=== PATIENT | female | born 1950 | race Caucasian/White ===

== ENCOUNTER 2017-01-21 16:59 | Inpatient (IN) | payer MEDICARE ==
[~2017-01-21] VITALS: Ht 170.2 cm; Wt 76.7 kg
--- NOTE | ~2017-01-21 | CN ---
PATIENT NAME:THU RM MEDICAL RECORD: [id number] : 48 LOCATION:D.MS [facility] ADMIT DATE: 01/21/17 ACCOUNT: [id number] CONSULTING PHYSICIAN: JOSSELIN ADKINS MD REFERRING PHYSICIAN: PANCHO GERMAN M.D. DATE OF CONSULTATION: 01/22/2017 CONSULT REQUESTING PHYSICIAN: Carrie Roche MD. REASON FOR CONSULTATION: Acute asthma exacerbation, pneumonia, miliary shadow on the CT scan of the chest. HISTORY OF PRESENT ILLNESS: Ms. Rm is a 66-year-old female, who is sick since November. Initially, she had a flu-like symptom. She was treated with antibiotics, she got better. She started working again, as well as she was swimming. She is also having trip to [facility]. But for the last few days, again, she has a fever, she is coughing, she has shortness of breath and she is not feeling well. Denies any chest pain. She is hearing herself wheezing. Also, the patient states she has mold in her home, which she cleaned a few years ago. Also, she is working as a cleaning lady. REVIEW OF SYSTEMS: Mainly in the history of present illness. CONSTITUTIONAL: She has fever of 100. HEENT: She has some sore throat. RESPIRATORY: As in history of present illness. CARDIOVASCULAR: Negative. GASTROINTESTINAL: Negative. GENITOURINARY: Negative. Other review of systems is negative. PAST MEDICAL HISTORY: 1. Asthma, diagnosed 20 years ago. 2. History of hyperlipidemia. 3. Depression. 4. Anxiety. 5. Psoriasis. 6. Chronic pain. PAST SURGICAL HISTORY: She had 20 bilateral nodules removed. ALLERGIES: There are no known drug allergies. PRESENT MEDICATIONS: On [employer] was reviewed. PERSONAL AND SOCIAL HISTORY: She is employed at [employer]. She is . She is a nonsmoker and nondrinker. FAMILY HISTORY: Noncontributory. PHYSICAL EXAMINATION: GENERAL: Now, the patient is lying comfortably in bed. She is not in acute distress. VITAL SIGNS: The blood pressure is 116/63, pulse is 93, respiration is 18, temperature 98.4, and SPO2 is 95% on room air. HEENT: Conjunctivae are pink. Sclerae nonicteric. CONSULT REPORT [id number] THU RM NECK: Supple. No JVD. CHEST: There is wheeze on forceful expiration. No crackles. HEART: Rhythm regular, normal sound, no murmur. ABDOMEN: Soft. Bowel sounds present. No hepatosplenomegaly. RECTAL: Deferred. EXTREMITIES: No cyanosis, no clubbing and no pedal edema. SKIN: Warm, normal turgor. CENTRAL NERVOUS SYSTEM: The patient is awake and alert. There are no obvious cranial nerve abnormality. The gait was not tested. IMAGING: CT scan of the chest: There is no PE. There are alveolar and interstitial changes bilaterally. There are some miliary nodules. OTHER LABORATORY DATA: CBC: The WBC is 5.1, hemoglobin 12.9, hematocrit 38.4 and the platelet count 206. The neutrophils are 62%. Chemistry: Sodium is 138, potassium is 3.3, chloride 102, bicarb is 28.5 and glucose is 116. IMPRESSION: 1. Bilateral pneumonia. 2. Miliary nodules, rule out tuberculosis, rule out histoplasmosis, rule out endocarditis. The patient has no history of recreational drug abuse. 3. Acute exacerbation of asthma. 4. Febrile illness. 5. Acute cough. RECOMMENDATION: 1. Continue Levaquin. 2. Follow up on the blood culture. 3. Check the cardiac echo. 4. Consult Dr. Perez. I will defer the infectious disease workup to Dr. Perez. 5. Followup labs and chest radiograph in the morning. Dr. Roche, thank you for involving me in the care of Ms. Rm. TRANSINT:[id number] Voice Confirmation ID: [id number] DOCUMENT ID: [id number] JOSSELIN ADKINS MD CC: PANCHO GERMAN M.D. [id number] DICTATION DATE: 01/22/17 1553 ORACLE DATABASE MANAGER: 01/23/17 0225 ADM IN [facility] [address] [place] [address]
--- NOTE | ~2017-01-21 | EC ---
PATIENT:THU RM DATE OF SERVICE: 01/21/17 SEX: F MEDICAL RECORD: [id number] DATE OF : [birth year] LOCATION:D.[facility] AGE OF PATIENT: 66 ADMISSION DATE: 01/21/17 REFERRING PHYSICIAN: INTERPRETING PHYSICIAN: DEENA JALLOH MD ECHOCARDIOGRAM REPORT ECHO CHARGES 4 ECHO COMPLETE CLINICAL DIAGNOSIS: PNEUMONIA/SOB ECHOCARDIOGRAPHIC MEASUREMENTS (adult normal given) AC root (d.<3.7cm) 3.2 LV Septum d (<1.2 cm> 1.2 Valve Excursion 2.0 LV Septum (systole) 1.9 Left Atria (s.<4.0cm> 2.8 LVPW d(<1.2cm) 1.2 RV (d.<2.3cm) 2.9 LVPW (sytole) 1.8 LV diastole(<5.6CM) 4.5 MV E-F(>70mm/sec) LV systole 2.1 LVOT Diameter 2.0 MV exc.(>10mm) Est.ejection fraction (50-75%) Pericardial Effusion N DOPPLER: LVIT A 90.0 E 70.0 LA RVSP 39.0 LVOT 145 AOP1/2T Asc. Ao 135 RVOT 82.0 RA PA 96.0 AV Gradient Peak 7.3 AV Mean 3.7 AV Area 2.6 MV Gradient Peak 4.0 MV Mean 1.6 MV Area COMMENTS: Manager Customs: Noreen PALACIOSOE In Store Demonstrator:1 Dr. Jalloh TAPE# PACS DATE OF SERVICE: 01/24/2017 Echocardiogram FINDINGS: 1. Left ventricular chamber size is within normal limits. Left ventricular systolic function is normal. Overall ejection fraction estimated at 60%. 2. Left atrium, right atrium, and right ventricle chamber sizes are within normal limits. 3. Valvular structures have normal structure and motion. ECHOCARDIOGRAM REPORT [id number] THU RM 4. Doppler interrogation reveals no significant valvular insufficiency or stenosis. 5. No evidence of pericardial effusion or left ventricular thrombus. TRANSINT:[id number] Voice Confirmation ID: [id number] DOCUMENT ID: [id number] DEENA JALLOH MD CC: [id number] DICTATION DATE: 01/24/17 1504 BEND SORTER: 01/24/17 2326 ADM IN [place] [id number]
--- NOTE | ~2017-01-21 | PRO ---
PATIENT:THU RM MEDICAL RECORD: [id number] : 48 LOCATION:D.[facility]0 ADMISSION DATE: 01/21/17 PROCEDURE PERFORMED BY: JOSSELIN ADKINS MD DATE OF PROCEDURE: 01/23/2017 PROCEDURE: Fiberoptic bronchoscopy. INDICATION: Ms. Rm is a 66-year-old female who was admitted with pneumonia. CT scan showed she has miliary nodules. Fiberoptic bronchoscopy was carried out to inspect the airway as well as to obtain specimen for culture and sensitivity. PROCEDURE: After obtaining the conscious sedation, the fiberoptic bronchoscope was passed orally. The vocal cords were normal, moving equally on phonation. The epiglottis was normal. The vallecula was normal. The pyriform sinuses were normal. The main trachea was normal. The adrian was sharp. The right upper lobe, right lower lobe, right middle lobe, subsegment within normal limits. No endobronchial lesion was seen. There was bronchitic change. There was white yellowish secretion on the right. The left main bronchus was normal. The subsegment to the left upper lobe, lingula and left lower lobe within normal range. No endobronchial lesion was seen. There were bronchitic changes seen. There are also white to yellowish secretions on the left side. Specimen washing was obtained, sent for routine culture and sensitivity, AFB and fungus and cytology. Overall, the patient tolerated the procedure. She was coughing violently during the procedure. TRANSINT:[id number] Voice Confirmation ID: [id number] DOCUMENT ID: [id number] JOSSELIN ADKINS MD CC: LEVI BROWNLEE MD [id number] DICTATION DATE: 01/23/17 1604 SECOND GRADE TEACHER: 01/23/172222 ADM IN [facility] [address] [place] [address]
[2017-01-21] MEDS ORDERED: CELEXA20 MG PO (17:44)
[2017-01-21] MEDS ORDERED: IPRAT-ALBUT 0.5-3 ML UPD (17:45)
--- NOTE | 2017-01-21 18:18 | NUR ---
RECIEVED TO ROOM 2230 VIA WHEELCHAIR ACCOMPANIED BY SPOUSE AND ADMISSIONS STAFF. SALINE LOC INITIATED PER ORDER TO LEFT FORARM 20 GA X 1 STICK TOLERATED WELL. LUGS NOTED TO HAVE DIMINISHED LEFT BASE AND INSPIRATORY WHEEZES BILATERLLY BSA X 4 QUADS ABDOMEN SOFT AND NON TENDER TO PALPATION.
[2017-01-21 18:32] VITALS: BP 127/67; BMI 26.5
--- NOTE | 2017-01-21 18:44 | NUR ---
PT AOX4 RESP EVEN AND NONLABORED PT DENIES NEEDS AT THIS TIME PT HERE FOR TREATMENT FOR PNEUMONIA FOR THIS VISIT. IV TO LEFT FOREARM PATENT AND INTACT. SRX2 BED AT LOWEST SETTING CALL LIGHT WITHIN REACH WILL CONTINUE TO MONITOR
[2017-01-21 18:47] LABS: BASOPHILS 0.3 % (0-2); EOSINOPHILS 4.3 % (0-7); HEMATOCRIT 37.8 % (36.0-48.0); HEMOGLOBIN 12.6 g/dL (12-16); IMMATURE GRANULOCYTES 0.2 % (0-5); LYMPHOCYTES 19.2 % (15-50); MCH 32.1 pg (26.0-34.0); MCHC 33.3 g/dL (31.0-37.0); MCV 96.4 fL (80.0-100.0); MEAN PLATELET VOLUME 8.8 fL (7.4-10.4); MONOCYTES 7.3 % (2-11); NEUTROPHILS 68.7 % (40-80); PLATELET COUNT 205 10x3/uL (130-400); RBC 3.92 10x6/uL (4.00-5.40); RDW 13.3 % (11.5-14.5); WBC 5.8 10x3/uL (4.8-10.8)
[2017-01-21 19:00] VITALS: BP 117/67
[2017-01-21 19:03] LABS: ALBUMIN 3.7 g/dL (3.4-5.0); ALKALINE PHOSPHATASE 81 U/L (46-116); ALT (SGPT) 24 U/L (10-68); BILIRUBIN - TOTAL 0.35 mg/dL (0.2-1.3); CALC OSMOLALITY 276 mosm/kg (275-300); CALCIUM 9.1 mg/dL (8.5-10.1); CHLORIDE - SERUM 101 mmol/L (98-107); CREATININE - SERUM 0.8 mg/dL (0.6-1.3); GLUCOSE 105 mg/dL (74-106); POTASSIUM - SERUM 3.5 mmol/L (3.5-5.1); PROTEIN - SERUM 6.8 g/dL (6.4-8.2); SODIUM 139 mmol/L (136-145); UREA NITROGEN 9 mg/dL (7-18); eGFR NON AFRICAN AMERICAN 76 mL/min (90-120)
[2017-01-21 19:13] LABS: CKMB 0.6 U/L (0.0-3.6); CREATINE KINASE 161 UL (21-215)
[2017-01-21 19:23] LABS: TROPONIN-I < 0.017 ng/mL (0.000-0.060)
--- NOTE | 2017-01-21 19:58 | NUR ---
AWAKE,ALERT.NO COMPLAINTS VOICED AT PRESENT. IV INFUSING TO LEFT FOREARM WIHTOUT REDNESS OR EDEMA NOTED. AT BEDSIDE. CL IN REACH.
[2017-01-21 22:32] LABS: APPEARANCE CLEAR (CLEAR); BILIRUBIN NEGATIVE (NEGATIVE); COLOR YELLOW (YELLOW); GLUCOSE NEGATIVE (NEGATIVE); KETONE NEGATIVE (NEGATIVE); LEUKOCYTE ESTERASE NEGATIVE (NEGATIVE); NITRITE NEGATIVE (NEGATIVE); PROTEIN NEGATIVE (NEGATIVE); UROBILINOGEN NORMAL (NORMAL)
[2017-01-22] VITALS: BP 157/64
--- NOTE | 2017-01-22 01:18 | NUR ---
RESTING QUIETLY.. NO DISTRESS NOTED.
[2017-01-22 04:00] VITALS: BP 137/67
--- NOTE | 2017-01-22 04:14 | NUR ---
EYES CLOSED RESPIRATIONS WITH EASE AND UNLABORED. SR UP X2 CALL LIGHT WITHIN REACH.
--- NOTE | 2017-01-22 05:48 | NUR ---
NO CHANGE IN ASSESSMENT. CL IN REACH.
--- NOTE | 2017-01-22 07:32 | NUR ---
AWAKE AND ALERT AT THIS TIME. RESPIRATIONS EVEN AND NON LABORED. DENIES PAIN OR NEEDS AT THIS TIME. SRX2 WITH BED IN LOWEST POSITION AND WHEELS LOCKED. CALL LIGHT IN REACH, WILL CONTINUE WITH PLAN OF CARE.
[2017-01-22 07:38] LABS: BASOPHILS 0.2 % (0-2); EOSINOPHILS 4.2 % (0-7); HEMATOCRIT 38.4 % (36.0-48.0); HEMOGLOBIN 12.9 g/dL (12-16); IMMATURE GRANULOCYTES 0.2 % (0-5); LYMPHOCYTES 25.5 % (15-50); MCH 32.3 pg (26.0-34.0); MCHC 33.6 g/dL (31.0-37.0); MCV 96.2 fL (80.0-100.0); MEAN PLATELET VOLUME 8.6 fL (7.4-10.4); MONOCYTES 7.9 % (2-11); PLATELET COUNT 206 10x3/uL (130-400); RBC 3.99 10x6/uL (4.00-5.40); RDW 13.3 % (11.5-14.5); WBC 5.1 10x3/uL (4.8-10.8)
[2017-01-22 07:55] VITALS: BP 104/66
[2017-01-22 08:05] LABS: ALBUMIN 3.7 g/dL (3.4-5.0); ANION GAP 10.8 mmol/L (8-16); BILIRUBIN - TOTAL 0.48 mg/dL (0.2-1.3); CARBON DIOXIDE 28.5 mmol/L (21.0-32.0); CREATININE - SERUM 0.9 mg/dL (0.6-1.3); POTASSIUM - SERUM 3.3 mmol/L (3.5-5.1); PROTEIN - SERUM 7.5 g/dL (6.4-8.2)
--- NOTE | 2017-01-22 08:30 | NUR ---
SCHEDULED MEDICATIONS ADMINISTERED AT THIS TIME. ALERT AND ORIENTED. ASSESSMENT PERFORMED PER FLOWSHEET. CALL LIGHT IN REACH, WILL CONTINUE WITH PLAN OF CARE.
[2017-01-22 11:17] VITALS: BP 112/68
[2017-01-22 14:55] VITALS: BP 116/63
--- NOTE | 2017-01-22 15:01 | NUR ---
Patient Name: THU RM Admission Status: Urgent Accout number: [id number] Admission Date: 01-21-2017 : 1950 Admission Diagnosis: Attending: AKI Current LOS: 1 Anticipated DC Date: 01-22-2017 Planned Disposition: Home Primary Insurance: [employer] CHO[employer] PFFS Discharge Planning Comments: CM MET WITH PATIENT REGARDING D/C NEEDS AND PLANS. PATIENT STATED HER WILL DRIVE HER HOME AT DISCHARGE. PATIENT HAS NO STEPS OR STAIRS AT HER HOME. PATIENT IS INDEPENDENT WITH HER CARE AND HAS A NEBULIZER AT HOME. PATIENTS PCP IS DR. ANDERSEN AND PHARMACY IS [facility] ON [facility] PATIENT DOES NOT WANT HOME HEALTH AT DISCHARGE. CM WILL CONTINUE TO FOLLOW PATIENT WITH D/C NEEDS AND PLANS. PCP DR. GANESH GARCIA [facility] ON [facility]- [phone] JOSE D (SPOUSE) [phone] Project Asst: Sandra Coleman Is the patient Alert and Oriented? Yes 0 * How many steps to enter\exit or inside your home? 0 0 * PCP DR. ANDERSEN 0 * Pharmacy [facility] ON [facility] 0 * Preadmission Environment Home with Family 0 * ADLs Independent 0 * Equipment Nebulizer 0 * List name and contact numbers for known caregivers / representatives who currently or will assist patient after discharge: JOSE D (SPOUSE) [phone] 0 * Community resources currently utilized None 0 * Additional services required to return to the preadmission environment? Yes 0 * Can the patient safely return to the preadmission environment? Yes 0 * Has this patient been hospitalized within the prior 30 days at any hospital? No 0 Grand Total: 0
--- NOTE | 2017-01-22 18:00 | NUR ---
SCHEDULED ANTIBIOTIC ADMINISTERED AT THIS TIME. IV TO LEFT FOREARM PATENT. PT USING INCENTIVE SPIROMETER WITHOUT ISSUE. REFUSES SCD'S SHE IS AMBULATORY AND RECEIVING LOVENOX. AT BEDSIDE. WILL CONTINUE WITH PLAN OF CARE.
[2017-01-22 19:00] VITALS: BP 121/70
--- NOTE | 2017-01-22 20:28 | NUR ---
UP AMBULATING IN ROOM. NO DISTRESS NOTED. SL TO LEFT FOREARM WIHTOUT REDNESS OR EDEMA NOTED. IN ROOM.
[2017-01-23] VITALS (11 sets, daily range): BP systolic 110–140; BP diastolic 51–82; Ht 170.2 cm; Wt 76.7 kg
--- NOTE | 2017-01-23 00:48 | NUR ---
RESTING QUIETLY, NO DISTRESS NOTED. CL IN REACH
[2017-01-23 05:37] LABS: BASOPHILS 0.5 % (0-2); EOSINOPHILS 4.5 % (0-7); HEMATOCRIT 38.4 % (36.0-48.0); HEMOGLOBIN 12.7 g/dL (12-16); IMMATURE GRANULOCYTES 0.2 % (0-5); LYMPHOCYTES 15.8 % (15-50); MCHC 33.1 g/dL (31.0-37.0); MCV 96.7 fL (80.0-100.0); MEAN PLATELET VOLUME 8.8 fL (7.4-10.4); PLATELET COUNT 230 10x3/uL (130-400); RBC 3.97 10x6/uL (4.00-5.40); RDW 13.7 % (11.5-14.5)
--- NOTE | 2017-01-23 05:38 | NUR ---
AWAKE,ALERT, NO COMPLAINTS VOICED. NO CHANGE IN ASSESSMENT.
[2017-01-23 05:55] LABS: ALBUMIN 3.6 g/dL (3.4-5.0); ANION GAP 12.7 mmol/L (8-16); BILIRUBIN - TOTAL 0.4 mg/dL (0.2-1.3); CALCIUM 8.9 mg/dL (8.5-10.1); CARBON DIOXIDE 25.5 mmol/L (21.0-32.0); CREATININE - SERUM 0.9 mg/dL (0.6-1.3); POTASSIUM - SERUM 4.2 mmol/L (3.5-5.1); PROTEIN - SERUM 7.3 g/dL (6.4-8.2)
--- NOTE | 2017-01-23 07:25 | NUR ---
AWAKE AND ALERT AT THIS TIME. RECEIVING RESPIRATORY TREATMENT. PROVIDED PT WITH FRESH ICE WATER AT THIS TIME. RESPIRATIONS EVEN AND NON LABORED. CALL LIGHT IN REACH, WILL CONTINUE WITH PLAN OF CARE.
--- NOTE | 2017-01-23 09:17 | NUR ---
SCHEDULED MEDICATIONS ADMINISTERED AT THIS TIME. ASSESSMENT PERFORMED PER FLOWSHEET AND SCD'S ON AND IN WORKING ORDER. CALL LIGHT IN REACH, WILL CONTINUE WITH PLAN OF CARE.
--- NOTE | 2017-01-23 10:25 | NUR ---
CONSENT FORM SIGNED AND WITNESSED FOR BRONCHOSCOPY WITH CONSCIOUS SEDATION. AT BEDSIDE. PT REMAINS NPO.
--- NOTE | 2017-01-23 11:44 | NUR ---
ONE TIME ORDER FOR ATIVAN ADMINISTERED PER ORDER FOR ANXIETY DUE TO PROCEDURE.
[2017-01-23 12:49] LABS: APTT 26.2 SECONDS (22.8-39.4); INR 0.95 (0.85-1.17); PROTIME 12.5 SECONDS (11.6-15.0)
--- NOTE | 2017-01-23 14:59 | NUR ---
PRE OPERATIVE MEDICATIONS ADMINISTERED FOR BRONCHOSCOPY AT THIS TIME PER ORDER. RT AT BEDSIDE PREPARING PT. WILL MONITOR PT WHEN SHE RETURNS TO ROOM 4380.
[2017-01-24] VITALS: BP 124/65
[2017-01-24 04:00] VITALS: BP 105/61
[2017-01-24 04:47] LABS: BASOPHILS 0.1 % (0-2); EOSINOPHILS 0.2 % (0-7); HEMATOCRIT 35.8 % (36.0-48.0); HEMOGLOBIN 11.8 g/dL (12-16); IMMATURE GRANULOCYTES 0.1 % (0-5); LYMPHOCYTES 8.5 % (15-50); MEAN PLATELET VOLUME 8.8 fL (7.4-10.4); MONOCYTES 5.1 % (2-11); PLATELET COUNT 206 10x3/uL (130-400); RBC 3.69 10x6/uL (4.00-5.40); RDW 14.1 % (11.5-14.5); WBC 9.9 10x3/uL (4.8-10.8)
[2017-01-24 04:57] LABS: ALBUMIN 3.3 g/dL (3.4-5.0); ALKALINE PHOSPHATASE 56 U/L (46-116); ALT (SGPT) 21 U/L (10-68); C-REACTIVE PROTEIN 1.1 mg/dL (0.0-0.9); CALC OSMOLALITY 264 mosm/kg (275-300); CALCIUM 8.6 mg/dL (8.5-10.1); CARBON DIOXIDE 24.2 mmol/L (21.0-32.0); CHLORIDE - SERUM 100 mmol/L (98-107); CREATININE - SERUM 0.8 mg/dL (0.6-1.3); GLUCOSE 119 mg/dL (74-106); POTASSIUM - SERUM 3.7 mmol/L (3.5-5.1); PROTEIN - SERUM 6.9 g/dL (6.4-8.2); SODIUM 133 mmol/L (136-145); UREA NITROGEN 6 mg/dL (7-18); eGFR NON AFRICAN AMERICAN 76 mL/min (90-120)
--- NOTE | 2017-01-24 07:55 | NUR ---
PT AOX4 RESP EVEN AND NONLABORED PT DENIES NEEDS AT THIS TIME IV TO LEFT FOREARM PATENT AND INTACT SRX2 BED AT LOWEST SETTING CALL LIGHT WITHIN REACH WILL CONTINUE TO MONITOR
[2017-01-24 08:15] VITALS: BP 94/54
[2017-01-24 12:28] VITALS: BP 124/71
--- NOTE | 2017-01-24 19:47 | NUR ---
rec'd. in bed. with service dog visitor at bedside denies any discomfort at present time. will continue to monitor for any chges. and follow current plan of care.
[2017-01-24 20:00] VITALS: BP 119/68
[2017-01-25] VITALS: BP 109/59
--- NOTE | 2017-01-25 02:54 | NUR ---
PT IS RESTING QUIETLY ASLEEP WITH EASY RESPIRATIONS AND NO DISTRESS NOTED. THERE IS A SELF PLACED TOWEL OVER HER HEAD AND THE ROOM IS DARK AND COOL. THE BED IS LOW, RAILS UP X'S 2 WITH THE CALL LIGHT AT HAND.
[2017-01-25 04:00] VITALS: BP 106/56
[2017-01-25 05:34] LABS: BASOPHILS 0.4 % (0-2); EOSINOPHILS 5.2 % (0-7); HEMATOCRIT 36.2 % (36.0-48.0); HEMOGLOBIN 12.3 g/dL (12-16); IMMATURE GRANULOCYTES 0.2 % (0-5); LYMPHOCYTES 19.5 % (15-50); MCH 32.5 pg (26.0-34.0); MCV 95.8 fL (80.0-100.0); MEAN PLATELET VOLUME 8.7 fL (7.4-10.4); MONOCYTES 8.1 % (2-11); NEUTROPHILS 66.6 % (40-80); PLATELET COUNT 206 10x3/uL (130-400); RBC 3.78 10x6/uL (4.00-5.40); RDW 13.8 % (11.5-14.5)
[2017-01-25 05:40] LABS: WBC 4.8 10x3/uL (4.8-10.8)
[2017-01-25 05:41] LABS: ALBUMIN 3.5 g/dL (3.4-5.0); ALKALINE PHOSPHATASE 61 U/L (46-116); ALT (SGPT) 21 U/L (10-68); CALC OSMOLALITY 274 mosm/kg (275-300); CALCIUM 8.9 mg/dL (8.5-10.1); CARBON DIOXIDE 25.7 mmol/L (21.0-32.0); CHLORIDE - SERUM 104 mmol/L (98-107); CREATININE - SERUM 0.7 mg/dL (0.6-1.3); GLUCOSE 109 mg/dL (74-106); POTASSIUM - SERUM 4.2 mmol/L (3.5-5.1); PROTEIN - SERUM 6.9 g/dL (6.4-8.2); SODIUM 138 mmol/L (136-145); UREA NITROGEN 6 mg/dL (7-18); eGFR NON AFRICAN AMERICAN 88 mL/min (90-120)
[2017-01-25 08:18] VITALS: BP 130/78
--- NOTE | 2017-01-25 09:13 | NUR ---
PT AOX4 RESP EVEN AND NONLABORED IV TO LEFT FOREARM PATENT AND INTACT PT DENIES NEEDS AT THIS TIME SRX2 BED AT LOWEST SETTING CALL LIGHT WITHIN REACH WILL CONTINUE MONITOR
[2017-01-25 13:25] VITALS: BP 128/70
[2017-01-25] MEDS ORDERED: LEVAQUIN750 MG PO (14:17)
[2017-01-25] MEDS ORDERED: BROVANA15 MCG/2 M INH (14:17)
[2017-01-25] MEDS ORDERED: PULMICORT0.5 MG/21 UPD (14:18)
[2017-01-25] MEDS ORDERED: SINGULAIR10 MG PO (14:18)
[2017-01-25] MEDS ORDERED: FLUTICASONE PRO16 GM NASAL (14:18)
[2017-01-25] MEDS ORDERED: FLORAJEN3 CAPS460 MG PO (14:18)
--- NOTE | 2017-01-25 16:41 | NUR ---
DISCHARGE INSTRUCTIONS GIVEN TO PT. AND PT VERBALIZES UNDERSTANDING OF INSTRUCTIONS AT THIS TIME
--- NOTE | 2017-01-25 17:00 | NUR ---
PT TRANSPORTED VIA WHEELCHAIR VIA PRIVATE VEHICLE HOME AT THIS TIME
[2017-01-25 19:08] LABS: ACID FAST SMEAR Negative (()); AFB SPECIMEN PROCESSING Concentration (())
[2017-01-26 08:09] LABS: LEGIONELLA ANTIGEN - URINE Negative (Negative)
[2017-01-27 10:10] LABS: ANA REFLEX - DIRECT Negative (Negative)
[2017-01-27 13:13] LABS: FUNGUS STAIN Final report (())
[2017-01-27 13:13] LABS: CRYPTOCOCCUS AG - SERUM Negative (Negative)
[2017-01-27 16:13] LABS: HISTOPLASMA GAL MANNAN AG SER 0.04 ng/mL (0.00-0.49)
== END 2017-01-25 17:00 | disposition home or self-care (01) | DRG 194 ==
LOC: D.MS 16:59
PROVIDERS: Family Medicine; Internal Medicine Pulmonary Disease; Student in an Organized Health Care Education/Training Program; ADMIT Family Medicine
PROC: 0BB78ZX Excision of Left Main Bronchus, Via Natural or Artificial Opening Endoscopic, Diagnostic (ICD-10-PCS; principal; 2017-01-23)
DX: J18.1 Lobar pneumonia, unspecified organism (principal); J45.901 Unspecified asthma with (acute) exacerbation; E78.5 Hyperlipidemia, unspecified; F32.9 Major depressive disorder, single episode, unspecified; F41.9 Anxiety disorder, unspecified; L40.9 Psoriasis, unspecified; R91.8 Other nonspecific abnormal finding of lung field; M41.9 Scoliosis, unspecified

== ENCOUNTER → 2017-03-05 08:37 | Outpatient (CLI) | payer MEDICARE ==
[2017-01-23 14:42] VITALS: BMI 26.4
[~2017-03-05 08:37] MED LIST: BROVANA15 MCG/2 M INH; CELEXA20 MG PO; FLORAJEN3 CAPS460 MG PO; FLUTICASONE PRO16 GM NASAL; IPRAT-ALBUT 0.5-3 ML UPD; LEVAQUIN750 MG PO; PULMICORT0.5 MG/21 UPD; SINGULAIR10 MG PO
== END | disposition home or self-care (01) ==
LOC: D.CT 08:37
DX: R91.8 Other nonspecific abnormal finding of lung field (principal)